=== PATIENT | male | born 1975 | race Caucasian/White ===

== ENCOUNTER 2017-10-25 08:53 | Outpatient (CLI) | payer BC, SELFPAY ==
[2017-10-25 10:49] LABS: ALT 52 U/L (12-78); Albumin 3.8 g/dL (3.4-5.0); Alkaline Phosphatase 75 U/L (46-116); Anion Gap 7.5 mmol/L (3-11); BUN 16 mg/dL (7-18); Bilirubin, Total 0.4 mg/dL (0.2-1.0); CO2 26.5 mmol/L (21.0-32.0); CREATININE 0.89 mg/dL (0.70-1.30); Calcium 9.1 mg/dL (8.5-10.1); Chloride 105 mmol/L (98-107); Cholesterol 262 mg/dL (50-200); Glucose 103 mg/dL (70-100); HDL Cholesterol 26 mg/dL (40-60); LDL CHOLESTEROL 113 mg/dL (<100); Potassium 4.5 mmol/L (3.5-5.1); Sodium 139 mmol/L (136-145); TSH (W/Ref FT4) 2.77 uIU/mL (0.358-3.74); Total Protein 7.4 g/dL (6.4-8.2)
[2017-10-25 11:17] LABS: Triglyceride 943 mg/dL (30-150)
[2017-10-25 11:56] LABS: AST 28 U/L (15-37)
== END 2017-10-25 09:13 ==
PROVIDERS: PCP Nurse Practitioner; Visit Provider Nurse Practitioner
DX: E78.2 Mixed hyperlipidemia (principal); I10 Essential (primary) hypertension; E03.9 Hypothyroidism, unspecified
CPT/HCPCS: 36415; 80053; 80061; 83721; 84443

== ENCOUNTER 2018-01-25 08:28 | Outpatient (CLI) | payer BC, SELFPAY ==
[2018-01-25 09:54] LABS: Hemoglobin A1C 5.7 % (4.5-6.2)
[2018-01-25 10:10] LABS: ALT 59 U/L (12-78); AST 38 U/L (15-37); Albumin 4.3 g/dL (3.4-5.0); Alkaline Phosphatase 61 U/L (46-116); Anion Gap 11.9 mmol/L (3-11); BUN 16 mg/dL (7-18); Bilirubin, Total 0.4 mg/dL (0.2-1.0); CO2 25.1 mmol/L (21.0-32.0); CREATININE 1.06 mg/dL (0.70-1.30); Calcium 9.9 mg/dL (8.5-10.1); Chloride 104 mmol/L (98-107); Cholesterol 272 mg/dL (50-200); Glucose 94 mg/dL (70-100); HDL Cholesterol 26 mg/dL (40-60); LDL CHOLESTEROL 176 mg/dL (<100); Potassium 4.2 mmol/L (3.5-5.1); Sodium 141 mmol/L (136-145); Total Protein 7.9 g/dL (6.4-8.2); Triglyceride 341 mg/dL (30-150)
== END 2018-01-25 08:48 ==
PROVIDERS: PCP Nurse Practitioner; Visit Provider Nurse Practitioner
DX: E78.2 Mixed hyperlipidemia (principal); E78.1 Pure hyperglyceridemia; I10 Essential (primary) hypertension; E03.9 Hypothyroidism, unspecified
CPT/HCPCS: 36415; 80053; 80061; 83721; 83036

== ENCOUNTER 2018-03-29 08:21 | Outpatient (CLI) | payer BC, SELFPAY ==
[2018-03-29 10:13] LABS: ALT 40 U/L (12-78); AST 23 U/L (15-37); Alkaline Phosphatase 59 U/L (46-116); Anion Gap 12.1 mmol/L (3-11); BUN 22 mg/dL (7-18); Bilirubin, Total 0.4 mg/dL (0.2-1.0); CO2 24.9 mmol/L (21.0-32.0); CREATININE 1.16 mg/dL (0.70-1.30); Calcium 9.4 mg/dL (8.5-10.1); Chloride 105 mmol/L (98-107); Cholesterol 219 mg/dL (50-200); Glucose 99 mg/dL (70-100); HDL Cholesterol 25 mg/dL (40-60); LDL CHOLESTEROL 152 mg/dL (<100); Potassium 4.2 mmol/L (3.5-5.1); Sodium 142 mmol/L (136-145); Total Protein 7.7 g/dL (6.4-8.2); Triglyceride 226 mg/dL (30-150)
== END 2018-03-29 08:41 ==
PROVIDERS: PCP Nurse Practitioner; Visit Provider Nurse Practitioner
DX: E78.2 Mixed hyperlipidemia (principal)
CPT/HCPCS: 36415; 80053; 80061; 83721

== ENCOUNTER 2018-05-17 10:50 | Outpatient (CLI) | payer BC, SELFPAY ==
[2018-05-17 12:39] LABS: ALT 43 U/L (12-78); AST 24 U/L (15-37); Albumin 4.3 g/dL (3.4-5.0); Alkaline Phosphatase 56 U/L (46-116); Bilirubin, Direct 0.11 mg/dL (0.00-0.20); Bilirubin, Total 0.6 mg/dL (0.2-1.0); Lipase 170 U/L (73-393); Total Protein 7.7 g/dL (6.4-8.2)
== END 2018-05-17 11:10 ==
PROVIDERS: PCP Nurse Practitioner; Visit Provider Family Medicine
DX: R10.9 Unspecified abdominal pain (principal)
CPT/HCPCS: 36415; 80076; 83690

== ENCOUNTER 2018-11-21 14:28 | Outpatient (CLI) | payer BC, SELFPAY ==
--- NOTE | 2018-11-21 14:30 | DI.RAD_ITS ---
EXAM: XR KNEE LT 3V AP,LAT,GWYN INDICATION: chronic pain, fatemeh anterior knee pain, M25.561,. COMPARISON: XR KNEE RT 3V AP,LAT,GWYN from 11/21/2018 TECHNIQUE: 2D digital imaging was performed. FINDINGS: Three views were obtained. There may be slight narrowing of the medial tibiofemoral cartilaginous mercy int space. No bony abnormality seen. IMPRESSION:
--- NOTE | 2018-11-21 14:30 | DI.RAD_ITS ---
EXAM: XR KNEE RT 3V AP,LAT,GWYN INDICATION: chronic knee pain. COMPARISON: No exams were available for comparison TECHNIQUE: 2D digital imaging was performed. FINDINGS: Three views were obtained. There is slight narrowing of the medial tibiofemoral cartilaginous joint space. Small bone island noted in the proximal tibia. No other bony abnormality seen. IMPRESSION:
== END 2018-11-21 14:48 ==
PROVIDERS: PCP Nurse Practitioner; Visit Provider Nurse Practitioner
DX: M25.561 Pain in right knee (principal); M25.562 Pain in left knee; G89.29 Other chronic pain; M89.8X6 Other specified disorders of bone, lower leg
CPT/HCPCS: 73562

== ENCOUNTER 2018-12-10 11:05 | Outpatient (CLI) | payer BC, SELFPAY ==
--- NOTE | 2018-12-10 10:57 | DI.RAD_ITS ---
EXAM: XR KNEES MERCHANT ONLY INDICATION: bilateral knee pain. COMPARISON: XR KNEE LT 3V AP,LAT,GWYN from 11/21/2018 TECHNIQUE: 2D digital imaging was performed. FINDINGS: Merchant view was obtained. The articular surfaces are well maintained. The bones are normally mine ralized. The patellofemoral joints appear symmetric.
== END 2018-12-10 11:25 ==
PROVIDERS: PCP Nurse Practitioner; Visit Provider Physician Assistant
DX: M25.561 Pain in right knee (principal); M25.562 Pain in left knee
CPT/HCPCS: 73565